=== PATIENT | female | born 1980 | race African-American/Black ===

== ENCOUNTER 2020-03-28 14:11 | Emergency (ER) | payer BC, MEDICAID, SELFPAY ==
--- NOTE | ~2020-03-28 | CT_ITS ---
EXAMINATION: CT cervical spine wo con DATE: 03/28/2020 15:30 INDICATION: Neck pain after fusion TECHNIQUE: Computed tomography (CT) of the cervical spine was performed without intravenous contrast. The dose-length product was 213 mGy-cm. Automated exposure control and iterative reconstruction tech [email or web address] were employed. COMPARISON: None FINDINGS: Status post anterior cervical fusion and discectomy at C4-6. Hardware appears to be intact. There are prosthetic disc devices at these levels. Reversal of cervical lordosis, possibly due to mu scle spasm. Odontoid process within normal limits. No significant spinal stenosis. No significant par aspinal soft tissue abnormality. Lung apices are normal. IMPRESSION: 1. No significant abnormality of the cervical spine post fusion at C4-6. Reviewed, dictated and finalized at location A.
[2020-03-28 14:18] VITALS: BP 143/106; PULSE 99; RESP 18; TEMP 36.8; O2SAT 100
--- NOTE | 2020-03-28 14:44 | ED.BACK ---
HPI - Back Pain/Injury General Chief Complaint: Back Pain/Injury Stated Complaint: back pain Time Seen by Provider: 03/28/20 14:25 Source: patient Mode of arrival: ambulatory Limitations: no limitations History of Present Illness HPI Narrative: Patient is a 40 yo female who presents with c/o increasing neck pain and pain radiating to left arm. Patient reports hx of anterior cervical fusion in 09/15. She reports increased pain to neck x 4-5 days. Reports intermittent tingling to left arm. She also reports pain to surgical site scar which she reports is enlarged and tender over the past day. Denies known injury. MD elicited complaint: other (Neck pain) Pertinent past history: prior back pain Onset (ago): day(s) Associated symptoms: denies other symptoms Work related injury: No Related Data Allergies Allergy/AdvReac Type Severity Reaction Status Date / Time sulfamethoxazole Allergy Unknown Other Verified 03/28/20 14:24 trimethoprim Allergy Unknown Other Verified 03/28/20 14:24 Review of Systems Review of Systems: Narrative: CONSTITUTIONAL: Denies fever, chills, or sweats. EYES: Denies visual changes, redness, or discharge. ENT: Denies rhinorrhea, congestion, sore throat, or otalgia. CARDIOVASCULAR: Denies chest pain, palpitations, or edema. RESPIRATORY: Denies cough or dyspnea. GASTROINTESTINAL: Denies abdominal pain, nausea, vomiting, or diarrhea. GENITOURINARY: Denies dysuria or hematuria. SKIN: Denies rash or itching. Reports tenderness to anterior cervical fusion incision site. MUSCULOSKELETAL:Reports cervical pain that radiates to left shoulder and arm, denies other joint pain, or myalgia. NEUROLOGIC: Denies headache, numbness, dizziness, or weakness. Reports tingling sensation to left arm. PSYCHIATRIC: Denies anxiety or depression. [facility] Social History Social History (Updated 03/28/20 @ 14:52 by RICHI Dumont) Smoking status: Never smoker Alcohol intake: current Alcohol use details: socially Substance use: never Living arrangements: with family Occupation/Education: occupation Exam Narrative: Exam Narrative: GENERAL: Well-appearing, well-nourished, and in no acute distress. HEAD: Normocephalic, atraumatic. EYES: EOMI. No redness or drainage. Conjunctiva are normal. ENT: Mucous membranes pink and moist. NECK: AROM. Supple. No lymphadenopathy. Tenderness with palpation to cervical infusion incision site scar, no erythema or warmth noted. Tenderness with palpation to posterior cervical area. No visible abnormality noted. CHEST: No respiratory distress. Clear to auscultation. HEART: Regular rate and rhythm. No murmur appreciated. Normal peripheral pulses. MUSCULOSKELETAL: No bony tenderness. EXTREMITIES: Normal range of motion. No edema. SKIN: Warm, dry, no rash. NEURO: No focal deficits. Alert and oriented x3. Gait steady. Car Shifter equal. PSYCH: Normal affect. No signs of depression or anxiety. Course Course Emergency Course: Patient reports decreased pain with administration of Toradol. Vital Signs Vital signs: Vital Signs Temperature 36.8 C 03/28/20 14:18 Pulse Rate 99 03/28/20 14:18 Respiratory Rate 18 03/28/20 14:18 Blood Pressure 143/106 H 03/28/20 14:18 Pulse Oximetry 100 03/28/20 14:18 Temperature 36.8 C 03/28/20 14:18 Pulse Rate 65 03/28/20 15:52 Respiratory Rate 19 03/28/20 15:52 Blood Pressure 140/82 03/28/20 15:52 Pulse Oximetry 100 03/28/20 15:52 MDM - Back Pain/Injury Differential Diagnosis Differential diagnosis: Likely other (cervical radiculopathy) Lab Data Labs: UCG Bedside Result Negative Reference Range: Negative Critical Care Time Critical Care Time Critical Care Time: No Discharge Plan Discharge Clinical Impression: Cervical radiculopathy Patient Disposition: Home, Self-Care Condition: Stable Instructions: Cervical Radiculopathy (ED) Additional Instructions: Please fol
[2020-03-28] MEDS: KETOROLAC (*BKC) 60 MG/2 ML VIAL IM (14:48)
[2020-03-28 15:52] VITALS: BP 140/82; PULSE 65; RESP 19; O2SAT 100
[2020-03-28 16:40] VITALS: BP 122/78; PULSE 88; RESP 17; O2SAT 99
== END 2020-03-28 16:40 | disposition home or self-care (01) ==
PROVIDERS: Emergency Provider Nurse Practitioner
DX: M54.12 Radiculopathy, cervical region (principal)
CPT/HCPCS: 72125; 81025; 96372; 99284; J1885